=== PATIENT | male | born 1935 | race Caucasian/White ===

== ENCOUNTER 2021-06-25 12:35 | Emergency (ER) | payer MEDICARE, OTHER ==
[~2021-06-25] VITALS: Ht 170.2 cm; Wt 76.2 kg
--- NOTE | 2021-06-25 12:41 | NUR ---
patient brought in by [facility] for a syncopqal episode while walking Addendum: 06/25/21 at 1304 by ISIDORO syncopal
[2021-06-25] MEDS ORDERED: IV NORMAL SALINE 500 ML IV ONE (12:45)
[2021-06-25] MEDS ORDERED: LISINOPRIL (12:57)
[2021-06-25 13:03] LABS: MEAN CORPUSCULAR HEMOGLOBIN 33.7 uug (23.8-33.4); MEAN CORPUSCULAR VOLUME 97.5 fL (73.0-96.2); PLATELET COUNT (AUTO) 194 K/uL (152-348)
--- NOTE | 2021-06-25 13:04 | NUR ---
Patient taken for CT at this time
[2021-06-25 13:16] LABS: ALANINE AMINOTRANSFERASE 14 U/L (16-63); ALKALINE PHOSPHATASE 58 U/L (50-136); ASPARTATE AMINOTRANSFERASE 15 U/L (15-37); BILIRUBIN,DIRECT 0.1 mg/dL (0.0-0.2); BILIRUBIN,TOTAL 0.4 mg/dL (0.2-1.0); CARBON DIOXIDE 24 mmol/L (21-32); CHLORIDE 100 mmol/L (98-107); CREATININE 1.2 mg/dL (0.6-1.3); ETHANOL < 3 MG/DL (0-0); GLUCOSE 129 mg/dL (74-106); POTASSIUM 4.1 mmol/L (3.5-5.1); TOTAL PROTEIN, SERUM 6.2 g/dL (6.4-8.2); UREA NITROGEN, BLOOD 30 mg/dL (7-18)
--- NOTE | 2021-06-25 14:15 | NUR ---
[facility] called at this time,
[2021-06-25 14:25] LABS: *BILIRUBIN,URIN NEGATIVE (NEGATIVE); *BLOOD, URINE NEGATIVE (NEGATIVE); *CLARITY,URINE CLEAR (CLEAR); *COLOR,URINE YELLOW (YELLOW); *KETONES,URINE TRACE (NEGATIVE); *UROBILINOGEN,URINE 0.2 E.U./dl (NORMAL); LEUKOCYTE ESTERASE ,URINE NEGATIVE (NEGATIVE); NITRITE, URINE NEGATIVE (NEGATIVE); PH,URINE 7.5 (5.0-8.0); UGLUCOSE NEGATIVE (NEGATIVE)
--- NOTE | 2021-06-25 17:44 | NUR ---
Patient noted being transferred to [facility] MD Wiliam Pittman is accepting Report given to Edith SALAZAR of ER patient noted being transferred by [facility] ambulance
== END 2021-06-25 17:53 | disposition short-term general hospital (02) ==
LOC: ER 12:35
DX: R55 Syncope and collapse (principal); Z20.822 Contact with and (suspected) exposure to COVID-19; M50.322 Other cervical disc degeneration at C5-C6 level; R94.31 Abnormal electrocardiogram [ECG] [EKG]; D64.9 Anemia, unspecified; N40.0 Benign prostatic hyperplasia without lower urinary tract symptoms; I10 Essential (primary) hypertension; Z79.899 Other long term (current) drug therapy; I67.2 Cerebral atherosclerosis
CPT/HCPCS: 36415; 70030-TC; 70450; 71045; 72125; 83605; 85025; 85730; 87040; 93005; A4663; G0480; J7040